=== PATIENT | female | born 1955 | race Caucasian/White ===

== ENCOUNTER 2016-06-18 06:03 | Day surgery (SDC) | payer OTHER ==
[~2016-06-18] VITALS: Ht 157.5 cm; Wt 84.5 kg
[~2016-06-18 06:03] MED LIST: ACETAMINOPHEN 325 MG TABLET PO PRN; ASPIRIN; CYCLOPENTOLATE HCL 1% 2 ML OPHTHALMIC SOLUTION ONE; FLURBIPROFEN SODIUM 0.03% 2.5 ML OPHTHALMIC SOLUTION ONE; GLYBURIDE; HYDROCHLOROTHIAZIDE; LISI-622 PO; NAPR500T PO; PHENYLEPHRINE HCL 2.5% 2 ML OPHTHALMIC SOLUTION ONE; RINGERS SOLUTION,LACTATED 500 ML IV ONE; SIMVASTATIN; TROPICAMIDE 1% 2 ML OPHTHALMIC SOLUTION ONE; [UNRECOGNIZED DRUG - OTHER]
[2016-06-18] MEDS ORDERED: RINGERS SOLUTION,LACTATED 500 ML IV ONE (06:30)
[2016-06-18] MEDS ORDERED: OMEG100019 PO (06:32)
[2016-06-18] MEDS ORDERED: BECL8.7A5 IH (06:32)
[2016-06-18] MEDS ORDERED: CALC600T95 PO (06:32)
[2016-06-18] MEDS ORDERED: ATOR40TA28 PO (06:32)
[2016-06-18] MEDS ORDERED: OMEP20 PO (06:32)
[2016-06-18] MEDS ORDERED: SIMV-261 PO (06:32)
[2016-06-18] MEDS ORDERED: CHOL200041 PO (06:32)
[2016-06-18] MEDS ORDERED: GLIM2 PO (06:32)
[2016-06-18] MEDS ORDERED: LISI-662 PO (06:32)
[2016-06-18] MEDS: CYCLOPENTOLATE HCL 1% 2 ML OPHTHALMIC SOLUTION OD SCH ×3 (06:52→07:03)
[2016-06-18] MEDS: TROPICAMIDE 1% 2 ML OPHTHALMIC SOLUTION OD SCH ×3 (06:52→07:03)
[2016-06-18] MEDS: PHENYLEPHRINE HCL 2.5% 2 ML OPHTHALMIC SOLUTION OD SCH ×3 (06:52→07:03)
[2016-06-18] MEDS: FLURBIPROFEN SODIUM 0.03% 2.5 ML OPHTHALMIC SOLUTION OD SCH ×3 (06:52→07:03)
[2016-06-18 06:57] LABS: GLUCOSE,POINT OF CARE 111 MG/DL (70-110)
[2016-06-18 09:07] LABS: GLUCOSE,POINT OF CARE 106 MG/DL (70-110)
[2016-06-18] MEDS ORDERED: MIDAZOLAM HCL 2 MG/2 ML VIAL IVP ONE (12:00)
[2016-06-18] MEDS ORDERED: FentaNYL CITRATE-PF 100 MCG/2 ML VIAL IVP ONE (12:00)
[2016-06-18] MEDS ORDERED: HYALURONATE SODIUM 12 MG/ML 0.8 ML SYRINGE IO ONE (16:58)
[2016-06-18] MEDS ORDERED: MethylPREDNISolone SOD SUCC 40 MG/ML VIAL IVP ONE (16:58)
[2016-06-18] MEDS ORDERED: TETRACAINE HCL 0.5% 2 ML OPHTHALMIC SOLUTION OD ONE (16:58)
[2016-06-18] MEDS ORDERED: HYALURONATE SOD/CHONDROITIN SOD 0.5 ML VIAL IO ONE (16:58)
[2016-06-18] MEDS ORDERED: POVIDONE-IODINE 10% 15 ML SOLUTION UD TP ONE (16:58)
[2016-06-18] MEDS ORDERED: NEOMYCIN/POLYMYXIN B/DEXAMETH 3.5 GM OPHTHALMIC OINTMENT OD ONE (16:58)
[2016-06-18] MEDS ORDERED: LIDOCAINE HCL/PF 1% 2 ML VIAL IM ONE (16:58)
[2016-06-18] MEDS ORDERED: ACETYLCHOLINE CHLORIDE 1 EA INTRAOCULAR SOLUTION KIT IO ONE (16:58)
[2016-06-18] MEDS ORDERED: TETRACAINE HCL VISCOUS 0.5% 0.6 ML OPHTHALMIC SOLUTION OD ONE (16:58)
== END 2016-06-18 09:50 | disposition home or self-care (01) ==
LOC: SURGERY 06:03
PROVIDERS: ATTEND Ophthalmology
DX: E11.36 Type 2 diabetes mellitus with diabetic cataract (principal); H25.811 Combined forms of age-related cataract, right eye; J45.909 Unspecified asthma, uncomplicated; D64.9 Anemia, unspecified; I10 Essential (primary) hypertension; E78.00 Pure hypercholesterolemia, unspecified; Z88.8 Allergy status to other drugs, medicaments and biological substances; Z90.49 Acquired absence of other specified parts of digestive tract; Z98.890 Other specified postprocedural states
CPT/HCPCS: 66984; 82962; 93005; C1780; J2250; J3010; J7120; J2920; J3490

== ENCOUNTER 2016-08-20 06:04 | Day surgery (SDC) | payer OTHER ==
[~2016-08-20] VITALS: Ht 157.5 cm; Wt 64.1 kg
[~2016-08-20 06:04] MED LIST changes: -ACETAMINOPHEN 325 MG TABLET PO PRN; -ASPIRIN; +ATOR40TA28 PO; +BECL8.7A5 IH; +CALC600T95 PO; +CHOL200041 PO; -CYCLOPENTOLATE HCL 1% 2 ML OPHTHALMIC SOLUTION ONE; -FLURBIPROFEN SODIUM 0.03% 2.5 ML OPHTHALMIC SOLUTION ONE; +FentaNYL CITRATE-PF 100 MCG/2 ML VIAL IVP ONE; +GLIM2 PO; -GLYBURIDE; +GLYCOPYRROLATE 0.2 MG/ML VIAL IM ONE; -HYDROCHLOROTHIAZIDE; -LISI-622 PO; +LISI-662 PO; +MIDAZOLAM HCL 2 MG/2 ML VIAL IVP ONE; -NAPR500T PO; +OMEG100019 PO; +OMEP20 PO; -PHENYLEPHRINE HCL 2.5% 2 ML OPHTHALMIC SOLUTION ONE; +PROPOFOL 1% 20 ML VIAL IVP ONE; -RINGERS SOLUTION,LACTATED 500 ML IV ONE; +SIMV-261 PO; -SIMVASTATIN; -TROPICAMIDE 1% 2 ML OPHTHALMIC SOLUTION ONE; -[UNRECOGNIZED DRUG - OTHER]
[2016-08-20] MEDS ORDERED: RINGERS SOLUTION,LACTATED 500 ML IV ONE ×3 (06:23→06:30)
[2016-08-20] MEDS ORDERED: FLURBIPROFEN SODIUM 0.03% 2.5 ML OPHTHALMIC SOLUTION ONE (06:53)
[2016-08-20] MEDS ORDERED: TROPICAMIDE 1% 2 ML OPHTHALMIC SOLUTION ONE (06:54)
[2016-08-20] MEDS ORDERED: CYCLOPENTOLATE HCL 1% 2 ML OPHTHALMIC SOLUTION ONE (06:54)
[2016-08-20] MEDS ORDERED: PHENYLEPHRINE HCL 2.5% 2 ML OPHTHALMIC SOLUTION ONE (06:54)
[2016-08-20] MEDS: CYCLOPENTOLATE HCL 1% 2 ML OPHTHALMIC SOLUTION OS SCH ×3 (07:17→07:30)
[2016-08-20] MEDS: FLURBIPROFEN SODIUM 0.03% 2.5 ML OPHTHALMIC SOLUTION OS SCH ×3 (07:17→07:30)
[2016-08-20] MEDS: TROPICAMIDE 1% 2 ML OPHTHALMIC SOLUTION OS SCH ×3 (07:17→07:30)
[2016-08-20] MEDS: PHENYLEPHRINE HCL 2.5% 2 ML OPHTHALMIC SOLUTION OS SCH ×3 (07:17→07:30)
[2016-08-20 07:32] LABS: GLUCOSE,POINT OF CARE 119 MG/DL (70-110)
[2016-08-20] MEDS ORDERED: ACETAMINOPHEN 325 MG TABLET ONE (08:59)
[2016-08-20] MEDS ORDERED: ACETAMINOPHEN 325 MG TABLET PO ONE (09:00)
[2016-08-20] MEDS ORDERED: TETRACAINE HCL VISCOUS 0.5% 5 ML OPHTHALMIC SOLUTION OU ONE (10:00)
[2016-08-20] MEDS ORDERED: POVIDONE-IODINE 10% 15 ML SOLUTION UD TP ONE (10:00)
[2016-08-20] MEDS ORDERED: HYALURONATE SODIUM 12 MG/ML 0.8 ML SYRINGE IO ONE (10:00)
[2016-08-20] MEDS ORDERED: LIDOCAINE HCL 1% 20 ML VIAL IM ONE (10:00)
[2016-08-20] MEDS ORDERED: NEOMYCIN/POLYMYXIN B/DEXAMETH 3.5 GM OPHTHALMIC OINTMENT IM ONE (10:00)
[2016-08-20] MEDS ORDERED: HYALURONATE SOD/CHONDROITIN SOD 0.5 ML VIAL IO ONE (10:00)
[2016-08-20] MEDS ORDERED: ACETYLCHOLINE CHLORIDE 1 EA INTRAOCULAR SOLUTION KIT IO ONE (10:00)
== END 2016-08-20 10:10 | disposition home or self-care (01) ==
LOC: SURGERY 06:04
PROVIDERS: ATTEND Ophthalmology
DX: E11.36 Type 2 diabetes mellitus with diabetic cataract (principal); I10 Essential (primary) hypertension; J45.909 Unspecified asthma, uncomplicated; E66.9 Obesity, unspecified
CPT/HCPCS: 66984; 82962; 93005; C1780; J0690; J1030; J2250; J2704; J3010; J3490 ×3; J7120

== ENCOUNTER 2019-10-31 20:08 | Emergency (ER) | payer OTHER ==
[~2019-10-31] VITALS: Ht 165.1 cm; Wt 79.5 kg
[~2019-10-31 20:08] MED LIST changes: +ALBU8HFA IH; -BECL8.7A5 IH; +BECL8.7A7 IH; +CALC600T14 PO; -CALC600T95 PO; -FentaNYL CITRATE-PF 100 MCG/2 ML VIAL IVP ONE; -GLYCOPYRROLATE 0.2 MG/ML VIAL IM ONE; +METR500 PO; -MIDAZOLAM HCL 2 MG/2 ML VIAL IVP ONE; +MONT10TA21 PO; +OMEG-135 PO; -OMEG100019 PO; -PROPOFOL 1% 20 ML VIAL IVP ONE
[2019-10-31] MEDS ORDERED: ONDANSETRON HCL 4 MG/2 ML VIAL IVP ONE (20:45)
[2019-10-31] MEDS ORDERED: HYDROmorphone 2 MG/ML SYRINGE IVP ONE (20:45)
[2019-10-31 20:58] LABS: BASOPHILS % (AUTO) 0.3 % (0.0-2.0); EOSINOPHILS % (AUTO) 0.6 % (1.0-6.0); HEMATOCRIT 38.9 % (36-46); HEMOGLOBIN 12.9 g/dL (12.0-16.0); LYMPHOCYTES # (AUTO) 0.8 K/uL (1.0-4.8); LYMPHOCYTES % (AUTO) 6.6 % (22.0-44.0); MEAN CORPUSCULAR HEMOGLOBIN 27.6 pg (26.0-34.0); MEAN CORPUSCULAR HGB CONC 33.1 G/dL (31.0-37.0); MEAN CORPUSCULAR VOLUME 83 fL (80-100); MONOCYTES # (AUTO) 0.4 K/uL (0.1-1.0); MONOCYTES % (AUTO) 3.3 % (2.0-9.0); NEUTROPHILS # (AUTO) 11.1 K/uL (1.8-7.7); PLATELET COUNT (AUTO) 306 K/uL (150-450); RED BLOOD CELL COUNT(AUTO) 4.67 MIL/uL (4.00-5.20); RED CELL DISTRIBUTION WIDTH 14.4 % (11.5-14.5)
[2019-10-31 21:01] LABS: NEUTROPHILS % (AUTO) 89.2 % (40.0-70.0)
[2019-10-31 21:02] LABS: APPEARANCE,URINE CLOUDY (CLEAR); BILIRUBIN,URINE NEGATIVE (NEGATIVE); GLUCOSE, URINE (UA) NEGATIVE (NEGATIVE); KETONES,URINE NEGATIVE (NEGATIVE); LEUKOCYTE ESTERASE ,URINE SMALL (NEGATIVE); NITRATE,URINE NEGATIVE (NEGATIVE); OCCULT BLOOD,URINE NEGATIVE (NEGATIVE); PH,URINE 5.5 (5.0-8.0); PROTEIN,URINE NEGATIVE (NEGATIVE); UROBILINOGEN,URINE 0.2 mg/dL (<=1.0)
[2019-10-31 21:09] LABS: CALCIUM, TOTAL 9.8 mg/dL (8.8-10.5); CREATININE 1.41 mg/dL (0.60-1.30); POTASSIUM 3.1 mmol/L (3.5-5.1)
[2019-10-31 21:17] LABS: ALBUMIN 3.7 g/dL (3.4-5.0); BILIRUBIN,TOTAL 0.4 mg/dL (0.1-1.0); TOTAL PROTEIN, SERUM 8.2 g/dL (6.4-8.2)
[2019-10-31 21:25] LABS: BACTERIA,URINE Rare /HPF (None Seen); RBC,URINE 0-2 /HPF (0-2)
[2019-10-31 21:26] LABS: SQUAMOUS EPITHELIAL CELL,UR Few /LPF (None Seen)
[2019-10-31] MEDS: BARIUM SULFATE 0.1% SUSPENSION 450 ML BOTTLE PO ONE ×2 (21:53→21:59)
[2019-11-01] MEDS ORDERED: MORPHINE SULFATE 4 MG/ML SYRINGE IVP ONE (00:15)
[2019-11-01] MEDS ORDERED: POTASSIUM CHLORIDE 20 MEQ ER TABLET PO ONE (00:15)
[2019-11-01] MEDS ORDERED: FAMOTIDINE 10 MG/ML 2 ML VIAL IVP ONE (00:30)
[2019-11-01] MEDS ORDERED: LOPERAMIDE HCL 2 MG CAPSULE PO ONE (02:00)
[2019-11-01 02:41] VITALS: BP 141/82
== END 2019-11-01 02:42 | disposition home or self-care (01) ==
LOC: EMS 20:08
DX: K29.70 Gastritis, unspecified, without bleeding (principal); E87.6 Hypokalemia; E11.9 Type 2 diabetes mellitus without complications; J45.909 Unspecified asthma, uncomplicated; I10 Essential (primary) hypertension; E78.00 Pure hypercholesterolemia, unspecified
CPT/HCPCS: 36415; 71045; 74176; 80053; 81001; 82962; 83690; 84484; 85025; 87086; 93005; 96374; 96375; 99285; J1170; J2405; J3490; J2270